=== PATIENT | male | born 1965 | race Hispanic/Latino ===

== ENCOUNTER → 2017-01-24 | Day surgery (SDC) | payer MEDICARE ==
[~2017-01-24] VITALS: Ht 165.1 cm; Wt 62.6 kg
[~2017-01-24] MED LIST: LOSA50TA37 PO; Lactated Ringer's 1,000 ML IV ONE; Lactated Ringer's 1,000 ML IV SCH; MetoCLOpramide 5 mg/mL 2 mL Inj IVPUSH PRN; OMEP20CA11 PO; Ondansetron 2 mg/mL 2 mL Inj IVPUSH PRN; Propofol 10,000 mCg/mL 20 mL Inj ONE
[2017-01-24 07:36] VITALS: BP 133/90; PULSE 73; RESP 16; O2SAT 98
--- NOTE | 2017-01-24 07:41 | PCM.HPANE ---
Patient Data Date of Service: Jan 24, 2017 Surgeon Admitting Provider: Attending Provider:Tom Hauser MD Primary Care Physician:Anil Tsai MD Other Provider:Keith Kim Anesthesia Reason for Visit Colon Cancer Screening, Gerd Ht/WT & BMI Height (Feet): 5 Height (Inches): 5 Weight (Kilograms): 62.60 Body Mass Index 22.00 Allergies Coded Allergies: No Known Allergies (Unverified , 01/19/17) Past Anesthesia History Anesthesia History: Denies:: Abnormal Airway, Anesthesia Reactions, Difficult Intubation, Fam Anesthesia Reaction, Fam Malignant Hypertherm, Malignant Hyperthermia Diabetes History Hx Diabetes?: No MRSA MRSA: No Medications Hypertension Medication: Yes Home Meds Incl Beta Torey: No Reported Medications Omeprazole 20 Mg Capsule.dr20 Mg PO DAILY Ref 0 12/26/16 Losartan Potassium 50 Mg [id number] Mg PO BID 12/26/16 History History of ENT Problems?: No HEENT History: Denies:: Abnormal Airway Difficult Intubation Dysphagia Hearing Problem Denture Type: None Teeth Condition: Within Normal Limits Hx of Heart Problems?: Yes Cardiovascular History: Positive for:: Hypertension Denies:: AICD Atrial Fibrillation Chest Pain Pacemaker Valvular Heart Disease Hx of Respiratory Problem?: No Respiratory History: Denies:: Asthma COPD Cough Hemoptysis Pneumonia Tuberculosis Hx Neurologic Problems?: No Neurological History: Denies:: CVA Hx of GI Problems?: Yes Gastrointestinal History: Positive for:: Gastroesphageal Reflux Hx of Problems?: No HX of Peritoneal Dialysis: No Hx Musculoskeletal Problems?: No Musculoskeletal History: Denies:: Fibromyalgia Joint Replacement Hx of Psycho/Social Problems?: Yes Psycho Social History: Positive for:: Anxiety Denies:: Hx Depression Hx Surgeries?: No Hx Any Other Health Problems?: Yes Hx Diabetes: No Hx Alcohol Use: Yes (SELDOM) Stop/Bang Treated for Sleep Apnea?: No Do You Have a CPAP Machine?: No S-Snoring: Do You Snore Loudly: Yes T-Tired: feel tired, fatigued: No O-Obsered: Observed not breath: Yes P-Blood Pressure: treated: Yes B- Body Mass Index > 35 kg/m2: No A- Age over 50: Yes N- Neck Large Circumference: No G- Gender Male: Yes JOEY Total Score: 5 JOEY Risk Assessment: High Risk, =/>3 Yes JOEY Category 4 OutPt Procedure: Yes Risk Assessment Category Category 1A: Patient has history of documented sleep apnea, and HAS NOT received any narcotic, sedative or anesthesia administration during this stay. Category 1B: Patient has history of documented sleep apnea, and HAS received any narcotic , sedative or anesthesia administration during this stay Category 2: Patient has SUSPECTED Obstructive Sleep Apnea, and HAS received any narcotic , sedative or anesthesia administration during this stay. Category 3: Patient has SUSPECTED Obstructive Sleep Apnea and HAS NOT received narcotic, sedative or anesthesia administration during this stay. Category 4: Outpatient in Procedural Areas with known sleep apnea or who screen positive for High Risk via the STOP/BANG questionnaire. Exam Exam Vital Signs Vital Signs Date Time Temp Pulse Resp B/P Pulse Ox O2 Delivery O2 Flow Rate FiO2 01/24/17 07:36 73 16 133/90 98 Room Air General Appearance: Alert, Oriented X3, Cooperative HEENT/AIRWAY: MP 2, Neck Movement (OK), Mouth Opening (Wide) Lungs: Clear to Auscultation, Normal Air Movement Heart: Regular Rate/Rhythm, Normal S1, Normal S2 Plan Impression Patient chart reviewed, patient interviewed and anesthestic plan with risks, benefits, and alternatives discussed, and informed consent obtained. NPO per Anesth. Guidelines: Yes ASA Physical Status: ASA2 Mod Systemic Disease Anesthetic Plan: MAC Bene/Risks/Altern/Consents: Yes HP Complete Prior to Induction: Yes Other MNC - Anxiety Aman Herrera MD Jan 24, 2017 07:41
[2017-01-24 08:15] VITALS: BP 87/62; PULSE 75; RESP 16; O2SAT 97
--- NOTE | 2017-01-24 08:23 | PCM.ANEP1 ---
Post Anesthesia PACU Phase 1 Assessment Date of Service: Jan 24, 2017 Vital Signs Vital Signs Date Time Temp Pulse Resp B/P Pulse Ox O2 Delivery O2 Flow Rate FiO2 01/24/17 08:15 75 16 87/62 97 Room Air 01/24/17 07:36 73 16 133/90 98 Room Air Anesthetic Administered: MAC Level of Alertness: Sleepy, easy to arouse HA's with Equal Strength: Yes Pain: No Nausea or Vomiting: No CV Function & Hydration Stable: Yes Airway Device: Oxygen Delivery: Room Air Lungs: Normal Air Movement Dermatome Level: Full Sensation PACU Phase 2 Assessment Complications: No Follow up Care: N/A Patient Instructions Provided: N/A Aman Herrera MD Jan 24, 2017 08:23
[2017-01-24 08:27] VITALS: BP 107/70; PULSE 76; RESP 14; O2SAT 97
--- NOTE | 2017-01-24 08:32 | ENDO ---
[address] [address] ENDOSCOPY PROCEDURE PATIENT: AILYN SANCHEZ : 1965 MR#: [id number] ADMIT: 01/24/2017 JOB ID: [id number] OPERATION: Esophagogastroduodenoscopy with biopsy, and colonoscopy. PREOPERATIVE DIAGNOSIS(ES): 1. Colorectal cancer screening. 2. Gastroesophageal reflux disease. POSTOPERATIVE DIAGNOSIS(ES): 1. Normal upper endoscopy, status post biopsy. 2. Normal colonoscopy. ANESTHESIA: Monitored anesthesia care. COMPLICATIONS: None. BLOOD LOSS: Minimal. DESCRIPTION OF PROCEDURE: After risks and benefits were explained to the patient, informed consent was obtained. After anesthesia administered, upper endoscope was inserted in the mouth and intubated through the esophagus, stomach, second portion of duodenum. Mucosa carefully examined. After procedure was done, the scope was withdrawn and the procedure terminated. Colonoscope was inserted per rectum to the terminal ileum and mucosa carefully examined. Prep of the patient was excellent. After the procedure was done, the scope was withdrawn and the procedure terminated. FINDINGS: Upon inspection of the esophagus, the esophagus is normal without masses, ulcers, or lesions. Z-line located 40 cm from incisors. Upon entering stomach, the stomach was also normal without masses, ulcers, or lesions. Retroflexion was normal. Duodenal bulb, first and second portion normal. Biopsy taken of the duodenum, antrum, body, and distal esophagus. Upon inspection of the anus, no masses, hemorrhoids, ulcers are seen throughout the entire examination. No polyps, masses or lesions. Intubation of the terminal ileum was normal. Retroflexion was normal. IMPRESSIONS: 1. Normal upper endoscopy, status post biopsy. 2. Normal colonoscopy. RECOMMENDATIONS: Await pathology results. Repeat colonoscopy in 10 years for colorectal cancer screening. Follow up in GI clinic as needed.
[2017-01-24 08:34] VITALS: BP 106/73; PULSE 62; RESP 14; O2SAT 97
--- NOTE | 2017-01-30 15:04 | PATH ---
SURGICAL PATHOLOGY Attending Physician:Tom Hauser MD CASE STATUS: Signed Out PATIENT NAME: AILYN SANCHEZ PID: [id number] : 1965 DATE COLLECTED:01/24/2017 21:45 SPECIMEN: 1: Esophagus, Biopsy 2: Gastric, Biopsy 3: Stomach, Antrum, Biopsy 4: Duodenum, Biopsy CLINICAL HISTORY: 1). DISTAL ESOPHAGUS 2). GASTRIC BODY 3). ANTRUM 4). DUODENUM FINAL DIAGNOSIS: 1. Distal Esophagus, Biopsy: Squamocolumnar junctional mucosa with no diagnostic abnormality. Negative for intestinal metaplasia, dysplasia or malignancy. 2. Gastric Body, Biopsy: Gastric body mucosa with no diagnostic abnormality. Helicobacter organisms not identified. Negative for intestinal metaplasia, dysplasia, or malignancy. 3. Antrum, Biopsy: Gastric antral mucosa with mild chronic gastritis. Negative for Helicobacter organisms by immunohistochemistry. Negative for intestinal metaplasia, dysplasia or malignancy. 4. Duodenum Biopsy: Duodenal mucosa with no diagnostic abnormality. Negative for active inflammation, features of sprue, dysplasia or malignancy. ICD10: K21.0 GROSS DESCRIPTION: The specimen is received in four formalin filled containers labeled with the patient's name. 1). The specimen is labeled "distal esophagus" and consists of a 0.2 x 0.2 x 0.2 CM portion of tissue which is entirely submitted in cassettes 1A. 2). The specimen is labeled "gastric body" and consists of 2 portions of tissue which aggregate to 0.3 x 0.3 x 0.2 CM. The specimen is entirely submitted in cassette 2A. 3). The specimen is labeled "antrum" and consists of 2 tiny portions of tissue which anchored it to 0.2 x 0.2 x 0.2 CM. The specimen is entirely submitted in cassette 3A. 4). The specimen is labeled "duodenum" and consists of 2 portions of tissue which aggregate to 0.3 x 0.3 x 0.2 CM. The specimen is entirely submitted in cassette 4A. 01/24/2017DC MICRO DESCRIPTION: Part 3: An immunohistochemical stain was performed to evaluate for Helicobacter organisms and is negative. A control stain showed appropriate reactivity. * This test was developed and its performance characteristics determined by [facility] It has not been cleared or approved by the U.S. Food and Drug Administration. The FDA has determined that such clearance or approval is not necessary. This test is used for clinical purposes. It should not be regarded as investigational or for research. ICD-9 CODES: CPT CODES: 1: 86536 2: 55191 3: 40528, 29545 4: 97051 Electronically Signed Out Mehdi Nielson MD, Ph.D. [facility] Pathology [facility], [place] [address] Technical component performed at [facility], [facility] [address], [place], [address]
== END | disposition home or self-care (01) ==
LOC: END 12-27 00:22
PROVIDERS: ATTEND Internal Medicine Gastroenterology
DX: Z12.11 Encounter for screening for malignant neoplasm of colon (principal); K21.9 Gastro-esophageal reflux disease without esophagitis; G71.0 Muscular dystrophy; L40.9 Psoriasis, unspecified; I10 Essential (primary) hypertension
CPT/HCPCS: 43239; G0121; J2704; J7120